=== PATIENT | male | born 1980 | race African-American/Black ===

== ENCOUNTER 2023-05-23 19:45 | Emergency (ER) | payer OTHER ==
[~2023-05-23] VITALS: Ht 172.7 cm; Wt 86.2 kg
== END 2023-05-23 21:24 | disposition home or self-care (01) ==
LOC: ER 19:45
DX: J10.1 Influenza due to other identified influenza virus with other respiratory manifestations (principal); R53.81 Other malaise; Z20.822 Contact with and (suspected) exposure to COVID-19

== ENCOUNTER 2023-08-22 14:24 | Emergency (ER) | payer OTHER ==
[~2023-08-22] VITALS: Ht 162.6 cm; Wt 77.1 kg
== END 2023-08-22 18:25 | disposition home or self-care (01) ==
LOC: ER 14:24
DX: J06.9 Acute upper respiratory infection, unspecified (principal); Z20.822 Contact with and (suspected) exposure to COVID-19

== ENCOUNTER 2025-05-03 09:21 | Emergency (ER) | payer OTHER ==
[~2025-05-03] VITALS: Ht 172.7 cm; Wt 79.4 kg
[2025-05-03 09:47] VITALS: BP 110/71; O2SAT 97
[2025-05-03] MEDS ORDERED: 0.9 % SODIUM CHLORIDE 1,000 ML IV STA (09:53)
[2025-05-03 10:55] LABS: BASO % 0.2 % (0.1-1.2); EOS # 0.01 (0.04-0.54); EOS % 0.2 % (0.7-7.0); LYMPH # 0.47 (1.18-3.74); LYMPH % 8.2 % (19.3-53.1); MEAN PLATELET VOLUME 11.70 fl (9.4-12.4); MONO # 0.39 (0.24-0.82); MONO % 6.8 % (4.7-12.5); NEUT # 4.87 (1.56-6.13); NEUT % 84.4 % (34.0-71.1); RED CELL DISTRIBUTION WIDTH 11.2 % (11.6-14.4)
[2025-05-03 10:59] LABS: URINE APPEARANCE Clear; URINE BILIRRUBIN Negative (NEGATIVE); URINE BLOOD Small; URINE COLOR Dark Yellow; URINE GLUCOSE Negative (NEGATIVE); URINE KETONE 15 (NEGATIVE); URINE LEUKOCYTE Negative; URINE NITRATE Negative; URINE PROTEIN 30 (NEGATIVE); URINE UROBILINOGEN 1.0 E.U./dl
[2025-05-03] MEDS ORDERED: FAMOTIDINE/PF 20 MG/2 ML VIAL IV PUSH ONE (11:00)
[2025-05-03 11:03] LABS: URINE BACTERIA 9.5 uL (0.0-1933); URINE EPITHELIAL CELLS 5.8 uL (0.0-38.8); URINE RBC 20.0 uL (0.0-20.8); URINE WBC 2.4 uL (0.0-23.2)
[2025-05-03 11:06] LABS: URINE CAST 0.58 uL (0.0-1.40)
[2025-05-03 11:36] LABS: BUN CREA RATIO 15.0 (7.0-25.0); CREATININE SERUM 1.1 mg/dL (0.70-1.30); GFR 72.06; GLUCOSE FASTING 98.0 mg/dL (65-100); OSMOLALITY SERUM 282.0 MOSM/KG (275-295)
[2025-05-03] MEDS ORDERED: KETOROLAC TROMETHAMINE 30 MG VIAL IV ONE (13:30)
[2025-05-03] MEDS ORDERED: KETOROLAC TROMETHAMINE 30 MG VIAL ONE (13:33)
[2025-05-03] MEDS ORDERED: LOPERAMIDE HCL 2 MG CAPSULE PO ONE ×2 (13:38→13:45)
[2025-05-03] MEDS ORDERED: ONDANSETRON HCL 2 MG/ML VIAL ONE (14:15)
== END 2025-05-03 14:41 | disposition home or self-care (01) ==
LOC: ER 09:41
PROVIDERS: Emergency Medicine
DX: K52.89 Other specified noninfective gastroenteritis and colitis (principal)